=== PATIENT | male | born 1995 | race Caucasian/White ===

== ENCOUNTER 2020-12-12 19:01 | Emergency (ER) | payer OTHER ==
[~2020-12-12] VITALS: Ht 195.6 cm; Wt 72.7 kg
[2020-12-12 19:09] VITALS: TEMP 97.9
[2020-12-12 20:15] VITALS: BP 118/73; PULSE 60
== END 2020-12-12 20:25 | disposition home or self-care (01) ==
LOC: COL.ER 19:01
DX: S61.212A Laceration without foreign body of right middle finger without damage to nail, initial encounter (principal); W26.8XXA Contact with other sharp object(s), not elsewhere classified, initial encounter